=== PATIENT | female | born 1975 | race Caucasian/White ===

== ENCOUNTER → 2021-12-13 09:25 | Outpatient (CLI) | payer OTHER, SELFPAY ==
--- NOTE | ~2021-12-13 | XR_ITS ---
EXAMINATION: XR hand RT 2V EXAM DATE: 12/13/2021 10:02 INDICATION: M79.641 - Pain in right hand . pt's thumb may have bent back 4 months ago while hanging d rywall, mid and proximal thumb pain and swelling. TECHNIQUE: Right hand frontal, lateral projections. There are no prior studies for comparison. FINDINGS: There are no acute fractures or dislocations identified. There is no subcutaneous gas. Th e soft tissue is unremarkable. There are no radiopaque foreign bodies. IMPRESSION: Unremarkable right hand exam. Reviewed, dictated and finalized at location B.
== END ==
PROVIDERS: PCP Family Medicine; Visit Provider Physician Assistant Medical
DX: M79.641 Pain in right hand (principal)
CPT/HCPCS: 73120